=== PATIENT | female | born 1990 | race Caucasian/White ===

== ENCOUNTER → 2024-06-02 17:15 | Outpatient (CLI) | payer OTHER, SELFPAY ==
--- NOTE | 2024-06-02 17:21 | DI.MRI.S_ITS ---
PROCEDURE: MR AB PANCREATIC/MRCP PROTOCOL INDICATIONS: ELEVATED LIVER ENZYMES TECHNIQUE: Coronal HASTE through the abdomen, axial 2-D FLASH in- and [id number], and breath-hold T2 FSE with fat saturation through the biliary system and pancreas. Oblique coronal and axial thin-slice HASTE, radial thick-slab HASTE centered on the extrahepatic bile ducts. Intravenous secretin: Not requested. COMPARISON: None. FINDINGS: Image quality: Diagnostic. Gallbladder: No gallstones or wall thickening. Biliary ducts: No biliary dilation. Pancreas: No ductal dilation. OTHER: Lung bases: Unremarkable. Liver: No solid mass. Spleen: Size is prominently enlarged with craniocaudad length measuring up to 23 cm. The spleen is seen to contain punctate low signal intensity foci possibly representing splenic granulomas, but no CT is available for review to establish presence or absence of internal calcification. Adrenal Glands: No adrenal nodules. Kidneys and Ureters: No hydronephrosis. No solid mass. No complex renal cystic lesion which requires follow up. Stomach and Bowel: Normal colonic caliber, without significant wall thickening. Peritoneum: No abnormal intraperitoneal fluid. No free air. Ventral Wall: No hernia. Abdominal Nodes: No retroperitoneal or mesenteric adenopathy by size criteria. Vessels: Aorta and inferior vena cava are normal in size. Bones: No aggressive osseous abnormality. IMPRESSION: Prominent splenomegaly without varices or hepatomegaly, or ascites. No associated adenopathy. Marrow signal appears normal through the visualized axial skeleton. Possible old splenic granulomatous disease given presence of numerous multifocal punctate low signal intensity foci within. Dictated by: Sukhwinder Fontanez M.D. on 06/03/2024 at 15:11 Approved by: Sukhwinder Fontanez M.D. on 06/03/2024 at 15:17
== END ==
PROVIDERS: PCP Nurse Practitioner Family; Referring Provider Nurse Practitioner Family; Visit Provider Internal Medicine
DX: R16.1 Splenomegaly, not elsewhere classified (principal); R74.8 Abnormal levels of other serum enzymes
CPT/HCPCS: 74183; A9579

== ENCOUNTER → 2024-12-07 17:43 | Outpatient (ROUT) | payer OTHER, SELFPAY | PROVIDERS: PCP Nurse Practitioner Family | DX: L03.90 Cellulitis, unspecified (principal) | CPT/HCPCS: 87070; 87075; 87077; 87147; 87186; 87205 ==

== ENCOUNTER → 2025-03-01 17:34 | Outpatient (ROUT) | payer OTHER, SELFPAY | PROVIDERS: PCP Nurse Practitioner Family; Visit Provider Registered Nurse | DX: L03.90 Cellulitis, unspecified (principal); A49.01 Methicillin susceptible Staphylococcus aureus infection, unspecified site; Z79.899 Other long term (current) drug therapy | CPT/HCPCS: 87070; 87075; 87205 ==